=== PATIENT | female | born 1980 | race African-American/Black ===

== ENCOUNTER 2017-03-14 01:57 | Emergency (ER) | payer MEDICAID, OTHER ==
[~2017-03-14] VITALS: Ht 170.2 cm; Wt 82.0 kg
[2017-03-14 05:27] LABS: BASOPHILS % 0.4 % (0.0-2.0); EOSINOPHILS % 1.3 % (0.0-5.0); HEMATOCRIT. 39.7 % (36.0-48.0); HEMOGLOBIN. 13.1 g/dL (12.0-16.0); LYMPHOCYTES % 31.5 % (20.0-50.0); MEAN CORPUSCULAR HEMOGLOBIN 25.4 pg (28.0-32.0); MEAN CORPUSCULAR VOLUME 76.7 fL (81.0-99.0); MEAN PLATELET VOLUME 8.3 fl (7.4-10.4); MONOCYTES % 4.4 % (2.0-8.0); NEUTROPHILS % 62.4 % (40.0-76.0); PLATELET 279 x1000/uL (130-400); RED BLOOD CELL COUNT 5.18 mill/uL (4.2-5.4); RED CELL DISTRIBUTION WIDTH 15.6 % (11.6-14.6)
[2017-03-14 05:43] LABS: CARBON DIOXIDE 25 mEq/L (21-32); CHLORIDE 110 mEq/L (98-107)
[2017-03-14 06:10] VITALS: BP 114/60
[2017-03-14 08:44] LABS: UCG SCREEN NEGATIVE
== END 2017-03-14 06:21 | disposition home or self-care (01) ==
LOC: ER 01:57
DX: R07.89 Other chest pain (principal); F17.200 Nicotine dependence, unspecified, uncomplicated
CPT/HCPCS: 36415; 71010; 80048; 81025; 85025; 85379; 93005; 99285; Z7610

== ENCOUNTER 2017-12-20 06:01 | Inpatient (IN) | payer MEDICAID, OTHER ==
[~2017-12-20] VITALS: Ht 165.1 cm; Wt 86.9 kg
[2017-12-20] MEDS ORDERED: ACETAMINOPHEN 325MG TABLET PO ONE ×2 (07:00→11:30)
[2017-12-20 09:27] LABS: CLARITY URINE CLOUDY (CLEAR); COLOR URINE YELLOW (YELLOW); KETONES URINE NEGATIVE (NEGATIVE); LEUKOCYTE ESTERASE URINE NEGATIVE (NEGATIVE); NITRITE URINE NEGATIVE (NEGATIVE); OCCULT BLOOD URINE TRACE (NEGATIVE); PH URINE 5.5 (4.5-8.0); PROTEIN URINE 1+ (NEGATIVE); UROBILINOGEN URINE 0.2 E.U./dL (0.2-1.0)
[2017-12-20] MEDS ORDERED: MORPHINE SULFATE 4 MG/ML CPJ (NOT FOR IM USE) IV STA (10:19)
[2017-12-20] MEDS ORDERED: ONDANSETRON HCL 4MG/2ML INJ IV STA (10:19)
[2017-12-20] MEDS ORDERED: VANCOMYCIN 1 G PREMIX 200 ML IV ONE (10:30)
[2017-12-20] MEDS ORDERED: DEXAMETHASONE 10 MG/ML VIAL IV ONE (10:30)
[2017-12-20] MEDS ORDERED: IBUPROFEN 600MG TABLET PO ONE (10:30)
[2017-12-20] MEDS ORDERED: CEFTRIAXONE 2 G PREMIX 50 ML IV ONE (10:30)
[2017-12-20] MEDS ORDERED: SODIUM CHLORIDE 0.9% 1000ML BAG (SEPSIS BOLUS) IV ONE (10:30)
[2017-12-20] MEDS ORDERED: ACYCLOVIR INJ 750 MG in DEXT 5% WATER 100 ML IV STA (11:13)
[2017-12-20 11:50] LABS: BASOPHILS % 0.2 % (0.0-2.0); EOSINOPHILS % 0.4 % (0.0-5.0); HEMOGLOBIN. 11.7 g/dL (12.0-16.0); LYMPHOCYTES % 11.4 % (20.0-50.0); MEAN CORPUSCULAR HEMOGLOBIN 26.7 pg (28.0-32.0); MEAN CORPUSCULAR VOLUME 77.2 fL (81.0-99.0); MEAN PLATELET VOLUME 8.8 fl (7.4-10.4); MONOCYTES % 4.9 % (2.0-8.0); NEUTROPHILS % 83.1 % (40.0-76.0); PLATELET 163 x1000/uL (130-400); RED BLOOD CELL COUNT 4.41 mill/uL (4.2-5.4); RED CELL DISTRIBUTION WIDTH 14.3 % (11.6-14.6)
[2017-12-20 11:56] LABS: CHLORIDE 102 mEq/L (98-107)
[2017-12-20 11:57] LABS: INR 1.1; PARTIAL THROMBOPLASTIN TIME 31.8 sec (23.4-31.0); PROTHROMBIN TIME 10.8 sec (9.1-11.1)
[2017-12-20] MEDS ORDERED: MORPHINE SULFATE 4 MG/ML CPJ (NOT FOR IM USE) IV ONE (12:45)
[2017-12-20] MEDS ORDERED: POTASSIUM CHLORIDE 20MEQ TABLET SR PO ONE (12:45)
[2017-12-20 13:50] LABS: GLUCOSE CSF 64 mg/dL (41-75)
[2017-12-20] MEDS ORDERED: ONDANSETRON HCL 4MG/2ML INJ IV PRN (14:30)
[2017-12-20] MEDS ORDERED: CEFTRIAXONE 2 G in DEXTROSE 5% WATER 50 ML IV SCH (16:00)
[2017-12-20 17:20] VITALS: BP 111/56
[2017-12-20 17:45] VITALS: BP 111/56
[2017-12-20 20:00] VITALS: BP 117/73
[2017-12-20] MEDS: HYDROCODONE/ACETAMINOPHEN 5/325MG TABLET PO PRN (20:27)
[2017-12-20 20:56] VITALS: BP 117/73
[2017-12-20] MEDS: VANCOMYCIN 1250MG in DEXTROSE 5% WATER 250ML IV SCH (22:01)
[2017-12-20] MEDS: ACETAMINOPHEN 325MG TABLET PO PRN (22:23)
[2017-12-21] VITALS (7 sets, daily range): BP systolic 100–142; BP diastolic 53–88
[2017-12-21] MEDS ORDERED: ACYCLOVIR INJ 750 MG in DEXT 5% WATER 100 ML IV SCH (01:00)
[2017-12-21] MEDS: ACYCLOVIR INJ 600 MG in DEXT 5% WATER 100 ML IV SCH ×3 (01:56→22:00)
[2017-12-21] MEDS: HYDROCODONE/ACETAMINOPHEN 5/325MG TABLET PO PRN ×2 (03:34→11:03)
[2017-12-21 07:57] LABS: CHLORIDE 103 mEq/L (98-107)
[2017-12-21 08:02] LABS: BASOPHILS % 0.1 % (0.0-2.0); EOSINOPHILS % 0.1 % (0.0-5.0); HEMATOCRIT. 34.1 % (36.0-48.0); HEMOGLOBIN. 11.3 g/dL (12.0-16.0); LYMPHOCYTES % 18.6 % (20.0-50.0); MEAN CORPUSCULAR HEMOGLOBIN 26.6 pg (28.0-32.0); MEAN CORPUSCULAR VOLUME 80.6 fL (81.0-99.0); MEAN PLATELET VOLUME 9.1 fl (7.4-10.4); MONOCYTES % 7.8 % (2.0-8.0); NEUTROPHILS % 73.4 % (40.0-76.0); PLATELET 147 x1000/uL (130-400); RED BLOOD CELL COUNT 4.24 mill/uL (4.2-5.4)
[2017-12-21] MEDS ORDERED: CEFTRIAXONE 2 G in DEXTROSE 5% WATER 50 ML IV SCH ×4 (09:00)
[2017-12-21] MEDS: VANCOMYCIN 1250MG in DEXTROSE 5% WATER 250ML IV SCH ×2 (09:25→20:57)
[2017-12-21] MEDS ORDERED: POTASSIUM CHLORIDE 20MEQ TABLET SR PO SCH (13:45)
[2017-12-21] MEDS: DOCUSATE SODIUM 100MG CAPSULE PO PRN (14:32)
[2017-12-21] MEDS: MORPHINE SULFATE 4 MG/ML CPJ (NOT FOR IM USE) IV PRN ×3 (14:37→22:59)
[2017-12-21] MEDS: ACETAMINOPHEN 325MG TABLET PO PRN ×2 (17:20→20:55)
[2017-12-22] VITALS: BP 137/75
[2017-12-22] MEDS: ACETAMINOPHEN 325MG TABLET PO PRN ×4 (01:36→22:05)
[2017-12-22] MEDS: CEFTRIAXONE 2 G in DEXTROSE 5% WATER 50 ML IV SCH ×2 (03:15→15:35)
[2017-12-22] MEDS: MORPHINE SULFATE 4 MG/ML CPJ (NOT FOR IM USE) IV PRN ×2 (03:37→12:34)
[2017-12-22 04:00] VITALS: BP 116/48
[2017-12-22] MEDS: ACYCLOVIR INJ 600 MG in DEXT 5% WATER 100 ML IV SCH ×3 (06:07→21:01)
[2017-12-22 10:00] VITALS: BP 98/44
[2017-12-22] MEDS: VANCOMYCIN 1,750 MG in DEXT 5% WATER 500 ML IV SCH ×2 (11:02→19:24)
[2017-12-22 12:00] VITALS: BP 117/58
[2017-12-22] MEDS: SODIUM CHLORIDE 0.45% 1,000 ML IV SCH (15:35)
[2017-12-22] MEDS: HYDROCODONE/ACETAMINOPHEN 5/325MG TABLET PO PRN ×2 (15:50→20:59)
[2017-12-22 16:00] VITALS: BP 125/51
[2017-12-22 17:06] LABS: *HSV 1 DNA PCR Negative (Negative); *HSV 2 DNA PCR Negative (Negative)
[2017-12-22] MEDS: POTASSIUM CHLORIDE 20MEQ TABLET SR PO SCH (18:02)
[2017-12-22 21:07] VITALS: BP 109/57
[2017-12-22 21:10] LABS: BASOPHILS % 0.3 % (0.0-2.0); EOSINOPHILS % 0.3 % (0.0-5.0); HEMATOCRIT. 31.9 % (36.0-48.0); HEMOGLOBIN. 10.9 g/dL (12.0-16.0); LYMPHOCYTES % 29.7 % (20.0-50.0); MEAN CORPUSCULAR HEMOGLOBIN 26.4 pg (28.0-32.0); MEAN CORPUSCULAR VOLUME 77.4 fL (81.0-99.0); MEAN PLATELET VOLUME 9.5 fl (7.4-10.4); MONOCYTES % 9.7 % (2.0-8.0); PLATELET 166 x1000/uL (130-400); RED BLOOD CELL COUNT 4.12 mill/uL (4.2-5.4); RED CELL DISTRIBUTION WIDTH 14.1 % (11.6-14.6)
[2017-12-22 21:18] LABS: CHLORIDE 99 mEq/L (98-107)
[2017-12-23] MEDS: VANCOMYCIN 1,750 MG in DEXT 5% WATER 500 ML IV SCH (01:40)
[2017-12-23] MEDS: HYDROCODONE/ACETAMINOPHEN 5/325MG TABLET PO PRN ×4 (01:41→20:49)
[2017-12-23] MEDS: SODIUM CHLORIDE 0.45% 1,000 ML IV SCH ×3 (01:42→21:59)
[2017-12-23 01:52] VITALS: BP 120/72
[2017-12-23 04:00] VITALS: BP 109/59
[2017-12-23] MEDS: ACYCLOVIR INJ 600 MG in DEXT 5% WATER 100 ML IV SCH ×3 (06:02→21:59)
[2017-12-23] MEDS: DOCUSATE SODIUM 100MG CAPSULE PO PRN (06:07)
[2017-12-23 06:45] LABS: BASOPHILS % 0.4 % (0.0-2.0); EOSINOPHILS % 0.5 % (0.0-5.0); HEMOGLOBIN. 11.6 g/dL (12.0-16.0); LYMPHOCYTES % 29.2 % (20.0-50.0); MEAN CORPUSCULAR HEMOGLOBIN 26.7 pg (28.0-32.0); MEAN CORPUSCULAR VOLUME 78.3 fL (81.0-99.0); MONOCYTES % 9.8 % (2.0-8.0); NEUTROPHILS % 60.1 % (40.0-76.0); PLATELET 147 x1000/uL (130-400); RED BLOOD CELL COUNT 4.34 mill/uL (4.2-5.4)
[2017-12-23 07:15] LABS: CHLORIDE 99 mEq/L (98-107)
[2017-12-23] MEDS: IBUPROFEN 600MG TABLET PO PRN ×2 (07:32→19:14)
[2017-12-23 08:00] VITALS: BP 116/46
[2017-12-23] MEDS: POTASSIUM CHLORIDE 20MEQ TABLET SR PO SCH (08:22)
[2017-12-23 12:00] VITALS: BP 106/49
[2017-12-23 16:00] VITALS: BP 111/64
[2017-12-23 16:48] LABS: HCG SCREEN NEGATIVE
[2017-12-23] MEDS ORDERED: GADOBENATE DIMEGLUMINE 529 MG/ML 10ML IV ONE (19:01)
[2017-12-23 20:00] VITALS: BP 100/47
[2017-12-24] VITALS: BP 97/59
[2017-12-24 04:00] VITALS: BP 110/58
[2017-12-24] MEDS: HYDROCODONE/ACETAMINOPHEN 5/325MG TABLET PO PRN ×2 (04:37→09:25)
[2017-12-24 06:31] LABS: BASOPHILS % 0.5 % (0.0-2.0); EOSINOPHILS % 2.5 % (0.0-5.0); HEMATOCRIT. 30.3 % (36.0-48.0); HEMOGLOBIN. 10.6 g/dL (12.0-16.0); LYMPHOCYTES % 30.5 % (20.0-50.0); MEAN CORPUSCULAR HEMOGLOBIN 27.3 pg (28.0-32.0); MEAN CORPUSCULAR VOLUME 77.9 fL (81.0-99.0); MEAN PLATELET VOLUME 9.3 fl (7.4-10.4); MONOCYTES % 7.8 % (2.0-8.0); NEUTROPHILS % 58.7 % (40.0-76.0); PLATELET 155 x1000/uL (130-400); RED BLOOD CELL COUNT 3.89 mill/uL (4.2-5.4)
[2017-12-24] MEDS: ACYCLOVIR INJ 600 MG in DEXT 5% WATER 100 ML IV SCH ×2 (06:48→13:41)
[2017-12-24 06:52] LABS: CHLORIDE 104 mEq/L (98-107)
[2017-12-24] MEDS: SODIUM CHLORIDE 0.45% 1,000 ML IV SCH ×2 (06:58→17:00)
[2017-12-24 08:00] VITALS: BP 108/54
[2017-12-24] MEDS: POTASSIUM CHLORIDE 20MEQ TABLET SR PO SCH (09:25)
[2017-12-24] MEDS: DOCUSATE SODIUM 100MG CAPSULE PO PRN (09:25)
[2017-12-24 12:00] VITALS: BP 112/58
[2017-12-24] MEDS: IBUPROFEN 600MG TABLET PO PRN (12:17)
[2017-12-24] MEDS ORDERED: SUMATRIPTAN SUCCINATE 6MG/0.5ML VIAL SUBCUT NR (14:00)
[2017-12-24 16:00] VITALS: BP 110/64
[2017-12-24 17:26] VITALS: BP 110/64
[2017-12-28 09:09] LABS: WEST NILE VIRUS CSF IGG Negative (Negative)
[2017-12-28 13:07] LABS: WEST NILE VIRUS CSF IGM Negative (Negative)
== END 2017-12-24 18:49 | disposition home or self-care (01) | DRG 720 ==
LOC: ER 06:01 → 8WST 13:03 → EDBEDREQ 13:05 → ENRESERV 16:06
PROVIDERS: ADMIT Internal Medicine; ATTEND Internal Medicine
PROC: 009U3ZX Drainage of Spinal Canal, Percutaneous Approach, Diagnostic (ICD-10-PCS; principal; 2017-12-20)
DX: A41.89 Other specified sepsis (principal); A87.9 Viral meningitis, unspecified; E66.9 Obesity, unspecified; F17.210 Nicotine dependence, cigarettes, uncomplicated; R21 Rash and other nonspecific skin eruption; E87.6 Hypokalemia; J45.909 Unspecified asthma, uncomplicated; Z90.49 Acquired absence of other specified parts of digestive tract; Z68.31 Body mass index [BMI] 31.0-31.9, adult
CPT/HCPCS: 36415; 70450; 70553; 71045; 80048; 80053; 80202; 81003; 81025; 82945; 83605; 84157; 84703; 85025; 85610; 85730; 86788; 86789; 87040; 87070; 87086; 87205; 87529; 87804; 89050; 93005; 96365; 96366; 96368; 96375; 99285; A9577; C1893; J0133; J0696; J1100; J2270; J2405; J3030; J3370; J7030; J7040; J7050; J7060

== ENCOUNTER 2024-08-25 16:23 | Emergency (ER) | payer MEDICAID ==
[~2024-08-25] VITALS: Ht 167.6 cm; Wt 81.0 kg
[2024-08-25 16:31] VITALS: O2SAT 99
[2024-08-25] MEDS: FAMOTIDINE 20MG TABLET PO STA (17:18)
[2024-08-25] MEDS: DIPHENHYDRAMINE 50MG/ML VIAL IM STA (17:18)
[2024-08-25 18:04] VITALS: BP 137/93; PULSE 90; RESP 16; TEMP 36.8; O2SAT 100
== END 2024-08-25 18:09 | disposition home or self-care (01) ==
LOC: ER 16:23
DX: T78.40XA Allergy, unspecified, initial encounter (principal); J45.909 Unspecified asthma, uncomplicated; Z90.49 Acquired absence of other specified parts of digestive tract; X58.XXXA Exposure to other specified factors, initial encounter
CPT/HCPCS: 96372; 99283; J1200; Z7610